=== PATIENT | male | born 1965 | race Caucasian/White ===

== ENCOUNTER 2016-08-18 14:07 | Day surgery (SDC) | payer OTHER ==
[~2016-08-18] VITALS: Ht 182.9 cm; Wt 95.9 kg
[2016-08-18] MEDS: Lactated Ringer's 1,000 ML IV SCH ×4 (05:00→20:33)
[~2016-08-18 14:07] MED LIST: CeFAZolin Inj 2 GM in IV Premix 1 EACH IV ONE; MULT-1018 PO; OMEP20TA86 PO
[2016-08-18] MEDS ORDERED: Ondansetron 2 mg/mL 2 mL Inj ONE ×2 (14:08)
[2016-08-18] MEDS ORDERED: MetoCLOpramide 5 mg/mL 2 mL Inj ONE (14:08)
[2016-08-18] MEDS ORDERED: Glucagon 1 mg/mL Inj ONE (14:08)
[2016-08-18] MEDS ORDERED: Rocuronium 10 mg/mL 5 mL Inj ONE ×2 (14:08)
[2016-08-18] MEDS ORDERED: Propofol 10,000 mCg/mL 20 mL Inj ONE ×2 (14:08)
[2016-08-18] MEDS ORDERED: Succinylcholine Chloride 20 mg/mL 5 mL Inj ONE (14:08)
[2016-08-18] MEDS ORDERED: EPHEDrine/NS 5 mg/mL 5 mL Syringe ONE (14:08)
[2016-08-18] MEDS ORDERED: fentaNYL-PF 50 mCg/mL 2 mL Inj ONE ×2 (14:08)
[2016-08-18] MEDS ORDERED: Dexamethasone 4 mg/mL Inj ONE ×2 (14:08)
[2016-08-18 16:02] VITALS: BP 118/70; PULSE 64; RESP 16; O2SAT 99
[2016-08-18] MEDS ORDERED: CeFAZolin Inj 2 gm / 50mL D5W IV ONE (16:21)
[2016-08-18] MEDS ORDERED: Bupivacaine-MPF 0.25%/EPI 30 mL Inj INJ ONE (17:18)
[2016-08-18] MEDS ORDERED: Iopamidol-300 50 mL Inj IV ONE (17:18)
[2016-08-18] MEDS ORDERED: Lactated Ringer's 1,000 ML IV SCH (17:52)
[2016-08-18] MEDS ORDERED: Lactated Ringer's 500 ML IV PRN (17:52)
--- NOTE | 2016-08-18 17:52 | PCM.HPANE ---
Patient Data Surgeon Admitting Provider: Attending Provider:Sanjeev Schwarz MD Primary Care Physician:Ailyn Other Provider:Russel Cook Anesthesia Reason for Visit Gallstones Ht/WT & BMI Height (Feet): 6 Height (Inches): 0 Weight (Kilograms): 36.5 Body Mass Index 10.00 Allergies Coded Allergies: No Known Allergies (Unverified , 08/17/16) Past Anesthesia History Anesthesia History: Denies:: Anesthesia Reactions, Malignant Hyperthermia Diabetes History Hx Diabetes?: No MRSA MRSA: No Medications Home Meds Incl Beta Felisha: No Reported Medications Omeprazole 20 Mg Tablet.dr20 Mg PO DAILY 08/17/16 Discontinued Reported Medications Multivitamin (Multi Vitamin Daily)1 Each Tablet1 Each PO DAILY 30 Days Ref 0 08/17/16 History History of ENT Problems?: No Hx of Heart Problems?: No Cardiovascular History: Denies:: Heart Murmur Hypertension Valvular Heart Disease Hx of Respiratory Problem?: No Respiratory History: Denies:: Use of C-PAP Machine Hx Neurologic Problems?: No Hx of GI Problems?: Yes Gastrointestinal History: Positive for:: Gall Bladder Disease (GALLSTONES= CURRENT PROBLEM) Denies:: Liver Disease (HX OF JAUNDICE W/ GALLBLADDER ATTACKS) Other GI Pertinent History: C/OF ABD (RUQ) PAIN S/P RT INGUINAL HERNIA RPR Hx of Problems?: No Male Hx: Positive for:: Testicular Surgery (S/P VASECTOMY) Denies:: Prostate Problems Scrotal Mass Skin History: Denies:: History Skin Disorders? Pressure Ulcers Hx Musculoskeletal Problems?: No Hx of Psycho/Social Problems?: Yes Psycho Social History: Positive for:: Anxiety Denies:: Hx Depression Hx Surgeries?: Yes (RT INGUINAL HERNIA RPR,VASECTOMY) Hx Any Other Health Problems?: Yes Other History: Denies:: Cancer Endocrine Disease Hospitalization Thyroid Disease Hx Diabetes: No Hx Alcohol Use: NoHave You Smoked inLast 12 mo: No Stop/Bang S-Snoring: Do You Snore Loudly: No T-Tired: feel tired, fatigued: No O-Obsered: Observed not breath: No P-Blood Pressure: treated: No B- Body Mass Index > 35 kg/m2: No A- Age over 50: Yes N- Neck Large Circumference: Yes G- Gender Male: Yes CANDIE Total Score: 3 Risk Assessment Category Category 1A: Patient has history of documented sleep apnea, and HAS NOT received any narcotic, sedative or anesthesia administration during this stay. Category 1B: Patient has history of documented sleep apnea, and HAS received any narcotic , sedative or anesthesia administration during this stay Category 2: Patient has SUSPECTED Obstructive Sleep Apnea, and HAS received any narcotic , sedative or anesthesia administration during this stay. Category 3: Patient has SUSPECTED Obstructive Sleep Apnea and HAS NOT received narcotic, sedative or anesthesia administration during this stay. Category 4: Outpatient in Procedural Areas with known sleep apnea or who screen positive for High Risk via the STOP/BANG questionnaire. Exam Exam Vital Signs Vital Signs Date Time Temp Pulse Resp B/P Pulse Ox O2 Delivery O2 Flow Rate FiO2 08/18/16 16:02 64 16 118/70 99 Room Air General Appearance: Alert, Oriented X3, Cooperative, No Acute Distress HEENT/AIRWAY: MP 2, Neck Movement (FROM), Mouth Opening (3 FBMO) Lungs: Clear to Auscultation, Normal Air Movement Heart: Exam Unremarkable, Regular Rate/Rhythm, No Murmurs/Rubs/Gallops Meds/Labs/Diagnostics Admission Meds Current Medications Lactated Ringer's (Lr) 1,000 ml @ 120 mls/hr Q8H20M IV Last administered on 16:03; Start 08/18/16 at 05:00; Stop 08/18/16 at 13:19; Status DC Acetaminophen (Tylenol) 650 mg PREOP ONCE PO Last administered on 08/18/16 16 :28; Start 08/18/16 at 06:00; Stop 08/18/16 at 06:01; Status DC Gabapentin (Neurontin) 600 mg STK-MED ONCE .ROUTE Last administered on 16:28; Start 08/18/16 at 16:20; Stop 08/18/16 at 16:21; Status DC Celecoxib (CeleBREX) 200 mg STK-MED ONCE .ROUTE Last administered on 08/18/16 16:28; Start 08/18/16 at 16:20; Stop 08/18/16 at 16:21; Status DC Scopolamine (Transderm-Scop Patch) 1.5 mg STK-MED ONCE TOPICAL Last administered on 08/18/16 16:28; Start 08/18/16 at 16:20; Stop 08/18/16 at 16:21 ; Status DC Plan Impression Patient chart reviewed, patient interviewed and anesthestic plan with risks, benefits, and alternatives discussed, and informed consent obtained. NPO Status: 1330 08/18/16 ASA Physical Status: ASA2 Mod Systemic Disease Anesthetic Plan: GA Bene/Risks/Altern/Consents: Yes HP Complete Prior to Induction: Yes Negrito Watters MD Aug 18, 2016 17:16
[2016-08-18] MEDS ORDERED: Phenylephrine 10,000 mCg/mL Inj IVPUSH PRN (17:55)
[2016-08-18] MEDS ORDERED: HYDROmorphone 1 mg/mL Inj IVPUSH PRN (17:55)
[2016-08-18] MEDS ORDERED: MetoCLOpramide 5 mg/mL 2 mL Inj IVPUSH PRN (17:55)
[2016-08-18] MEDS ORDERED: Labetalol 5 mg/mL 4 mL Inj IV PRN (17:55)
[2016-08-18] MEDS ORDERED: EPHEDrine Sulfate 50 mg/mL Inj IVPUSH PRN (17:55)
[2016-08-18] MEDS ORDERED: Atropine 0.4 mg/mL Inj IVPUSH PRN (17:55)
[2016-08-18] MEDS ORDERED: Ondansetron 2 mg/mL 2 mL Inj IVPUSH PRN (17:55)
[2016-08-18] MEDS ORDERED: HYDROmorphone 0.5 mg/0.5 mL iSecure Syringe IVPUSH PRN (19:45)
[2016-08-18] MEDS ORDERED: oxyCODONE-Acetamin 5-325 mg Tablet PO PRN (19:45)
[2016-08-18 19:54] VITALS: BP 142/86; PULSE 85; RESP 15; O2SAT 100
[2016-08-18 20:07] VITALS: BP 140/77; PULSE 96; RESP 18; O2SAT 98
[2016-08-18 20:28] VITALS: BP 131/76; PULSE 98; RESP 12; O2SAT 98
--- NOTE | 2016-08-18 20:48 | OP ---
[address] [address] OPERATIVE REPORT PATIENT: RAFFAELE DASILVA : 1965 MR#: [id number] ADMIT: 08/18/2016 JOB ID: [id number] DATE OF SURGERY: 08/18/2016 ANESTHESIA: General. PREOPERATIVE DIAGNOSIS(ES): Biliary colic with choledocholithiasis. POSTOPERATIVE DIAGNOSIS(ES): Chronic cholecystitis with choledocholithiasis with retained common bile duct stone. OPERATION: Laparoscopic cholecystectomy with failed attempt at laparoscopic duct exploration. SURGEON: Dr. Sanjeev Schwarz. PERSONNEL RECRUITER: LAKESHIA Valadez (The certified medical technician assistant was required for safe and timely completion of the case). COMPLICATIONS: None. ESTIMATED BLOOD LOSS: Minimal. CONDITION: Satisfactory. FINDINGS: There was thickening of the gallbladder suggestive of chronic inflammation. Cholangiogram demonstrated a distal common bile duct stone. A transcystic common bile duct exploration was attempted. About an hour was spent trying to extract the stone but, ultimately, proved unsuccessful and was therefore abandoned. INDICATIONS/SIGNIFICANT HISTORY: The patient is a 50-year-old man who was referred to me by an outside application assistant for symptomatic cholelithiasis. Over the past month or two, he had been having episodic postprandial right upper quadrant abdominal pain. 2-1/2 weeks ago he had an episode that lasted for three or four days and also developed jaundice at that time. He sought medical attention and an ultrasound demonstrated cholelithiasis. He was referred to me as an outpatient and saw me two days ago. By that time he was pain free and no longer jaundiced; I therefore scheduled him for a semi-elective cholecystectomy with cholangiogram. OPERATIVE TECHNIQUE: The patient was taken into the operating room and placed in supine position. General anesthesia was administered and perioperative antibiotics were given. The abdomen was prepped and draped in standard surgical fashion and a procedural pause performed. Entry was gained into the abdomen through a supraumbilical incision using a 10 mm Optiview trocar. Local anesthetic was injected, followed by insertion of 5 mm ports in the subxiphoid as well as two in the right upper quadrant. Dissection was begun to identify the cystic duct and cystic artery. Gallbladder was quite elongated and the surrounding tissue was quite thick regarding a prolonged dissection. A critical view of safety was achieved. The cystic artery was taken with electrocautery. A clip was placed on the cystic duct/gallbladder junction and ductotomy made. Cholangiocatheter was inserted and cholangiogram obtained with normal biliary anatomy identified. There was flow into the duodenum, but with a filling defect suggestive of a stone in the distal common bile duct. Lidocaine was injected into the duct and glucagon given IV. Repeat cholangiogram was obtained showing a stone did not pass. Therefore, a wire basket was inserted through the cystic duct. I had difficulty transiting from the cystic to the common bile duct. At one point the wire advanced, but took an unusual course. By this time, the contrast had washed out and the stone and duct could not be visualized. Therefore, another cholangiogram was obtained confirming that the wire was not in the duct. I was initially concerned about the possibility that the wire had perforated the CBD, but there was no extravasation of contrast to suggest this. Presumably the wire was not in the duct at all or had passed through the posterior cystic duct high up. At this point I elected to abort any further attempt at duct exploration. Approximately one hour had been spent on this. Two clips were then placed on the cystic duct and the transection completed. The remainder of the dissection of the gallbladder off the cystic duct was then completed and the gallbladder placed in an EndoCatch bag and removed through the umbilical port site. The surgical bed was inspected and found to be hemostatic and free of bile. It was irrigated. The umbilical fascia was then closed using 2-0 PDS. The lateral ports were removed under direct visualization followed by release of pneumoperitoneum and removal of the remaining port. Skin was closed using 4-0 Monocryl. The patient will be admitted to the hospital with plans for ERCP to be performed tomorrow discrete. LUSI
[2016-08-18] MEDS: fentaNYL-PF 50 mCg/mL 2 mL Inj IVPUSH PRN ×2 (20:57→21:01)
[2016-08-18 21:04] VITALS: BP 127/75; PULSE 88; RESP 12; O2SAT 98
[2016-08-18 21:15] VITALS: BP 129/75; PULSE 92; RESP 16; O2SAT 94
--- NOTE | 2016-08-18 22:27 | PCM.ANEP1 ---
Post Anesthesia Phase 1 PACU Phase 1 Assessment Vital Signs Vital Signs Date Time Temp Pulse Resp B/P Pulse Ox O2 Delivery O2 Flow Rate FiO2 08/18/16 21:04 37.2 88 12 127/75 98 Room Air 08/18/16 20:28 98 12 131/76 98 Room Air 08/18/16 20:07 96 18 140/77 98 Room Air 08/18/16 19:54 37.2 85 15 142/86 100 Simple Mask 9 08/18/16 16:02 64 16 118/70 99 Room Air Anesthetic Administered: GA Level of Alertness: Awake, talking CONTRERAS's with Equal Strength: Yes Pain: Yes Nausea or Vomiting: No Oxygen Delivery: Simple Mask Lungs: Clear to Auscultation, Normal Air Movement Dermatome Level: Full Sensation Negrito Watters MD Aug 18, 2016 22:27
--- NOTE | 2016-08-18 22:28 | PCM.ANEP2 ---
Post Anesthesia Evaluation ASA/CMS Post Anesthesia VS in Patient's Normal Range?: Yes Resp Stable; Airway Patent?: Yes CV Function & Hydration Stable: Yes Mental Status Recovered?: Yes Pain control Satisfactory?: Yes N/V Control Satisfactory?: Yes Negrito Watters MD Aug 18, 2016 22:27
[2016-08-18] MEDS: Piperacillin-Tazo 3.375 Gm Inj 3.375 GM in Dextrose 5% Minibag Plus 50 ML IV SCH (23:04)
[2016-08-18] MEDS: Dextrose 5% Lactated Ringer's 1,000 ML IV SCH (23:05)
--- NOTE | 2016-08-18 23:33 | NUR ---
Post-op Althea Alert, denies pain or nausea, VSS. IV fluids and Zosyn started. Taking sips of clears then NPO at midnight for ERCP 08/19.
[2016-08-19] VITALS (12 sets, daily range): BP systolic 106–128; BP diastolic 65–77; PULSE 52–99; RESP 11–18; O2SAT 68–100
[2016-08-19 05:53] LABS: BASOPHILS % (AUTO) 0 % (0-3); EOSINOPHILS % (AUTO) 0 % (0-5); Mean Corpuscular Hemoglobin 29.4 pg (27.0-35.0); Mean Corpuscular Volume 87.4 fL (81-100); NEUTROPHILS % (AUTO) 90.1 % (40-74); Platelet Count 269 bil/L (150-400)
[2016-08-19] MEDS: Dextrose 5% Lactated Ringer's 1,000 ML IV SCH (08:15)
--- NOTE | 2016-08-19 08:23 | PROG NOTE ---
[address] [address] PROGRESS NOTE PATIENT: RAFFAELE DASILVA : 1965 MR#: [id number] ADMIT: 08/18/2016 JOB ID: [id number] DATE: 08/19/2016 SUBJECTIVE: The patient is seen postoperative day one from laparoscopic cholecystectomy with retained common bile duct stone. Yesterday the patient underwent a laparoscopic cholecystectomy for a history of biliary colic and a remote history of jaundice. Cholangiogram demonstrated a common bile duct stone. An attempt was made at transcystic duct exploration but ultimately failed. This morning the patient tells me he is feeling pretty good with minimal pain. OBJECTIVE: He has remained afebrile and hemodynamically normal. This morning, he is alert, oriented and comfortable. His abdomen is soft, nontender, nondistended. His dressings are clean, dry and intact. His white blood cell count this morning was 8.5. His hematocrit is 39.6. Platelet count is 269. Creatinine is 1.07. His bilirubin is 1.5. AST and ALT are mildly elevated. ASSESSMENT AND PLAN: This is a 50-year-old man postop day one from laparoscopic cholecystectomy with cholangiogram demonstrating retained common bile duct stone. I discussed the case with Dr. Bae of Gastroenterology yesterday evening. He has currently agreed to see the patient and plan for an ERCP today. I will leave the patient on broad-spectrum antibiotics given that his doctor was instrumented yesterday, this can be stopped after the stone has been removed. The patient is currently n.p.o. in anticipation of hopefully undergoing ERCP today.
--- NOTE | 2016-08-19 09:57 | DRSVH ---
PROCEDURE: X-RAY OPERATIVE CHOLANGIOGRAM ([id number]) INDICATIONS: GALLSTONES COMPARISON: None. FINDINGS: Biliary ducts: The surgeon injected contrast into the biliary ducts after cannulation of the cystic duct stump. Visualized intra- and extrahepatic bile ducts are normal in caliber, without strictures. 1.5 cm rounded filling defect involves the distal common bile duct. No evidence for iatrogenic troy vickey injury. Duodenum: Contrast flows promptly through the sphincter of Oddi into the duodenum, which appears nor mal in caliber. IMPRESSION: Probable retained stone. Correlate with real-time exam. Dictated by: Lalo Victor [facility] Interpreted: Zaina Haddad MD on 08/19/2016 at 9:57 Transcribed by: MARBIN on 08/19/2016 at 9:57 Approved by: Zaina Haddad MD, PhD on 08/19/2016 at 16:30
[2016-08-19] MEDS: Piperacillin-Tazo 3.375 Gm Inj 3.375 GM in Dextrose 5% Minibag Plus 50 ML IV SCH ×2 (10:22→21:12)
[2016-08-19] MEDS ORDERED: 0.9% Sodium Chloride 100 ML ONE (10:23)
--- NOTE | 2016-08-19 11:10 | PCM.HPANE ---
Patient Data Surgeon Admitting Provider: Attending Provider:Sanjeev Schwarz MD Primary Care Physician:Ailyn Other Provider:Russel Cook Anesthesia Reason for Visit Gallstones Ht/WT & BMI Height (Feet): 6 Height (Inches): 0.00 Weight (Kilograms): 95.900 Body Mass Index 28.64 Allergies Coded Allergies: No Known Allergies (Unverified , 08/17/16) Past Anesthesia History Anesthesia History: Denies:: Anesthesia Reactions, Malignant Hyperthermia Diabetes History Hx Diabetes?: No MRSA MRSA: No Medications Home Meds Incl Beta Felisha: No Reported Medications Omeprazole 20 Mg Tablet.dr20 Mg PO DAILY 08/17/16 Discontinued Reported Medications Multivitamin (Multi Vitamin Daily)1 Each Tablet1 Each PO DAILY 30 Days Ref 0 08/17/16 History History of ENT Problems?: No Hx of Heart Problems?: No Cardiovascular History: Denies:: Heart Murmur Hypertension Valvular Heart Disease Hx of Respiratory Problem?: No Respiratory History: Denies:: Use of C-PAP Machine Hx Neurologic Problems?: No Hx of GI Problems?: Yes Gastrointestinal History: Positive for:: Gall Bladder Disease (GALLSTONES= CURRENT PROBLEM) Denies:: Liver Disease (HX OF JAUNDICE W/ GALLBLADDER ATTACKS) Other GI Pertinent History: C/OF ABD (RUQ) PAIN S/P RT INGUINAL HERNIA RPR Hx of Problems?: No Other Pertinent History: S/P rosa 08/18/16 Male Hx: Positive for:: Testicular Surgery (S/P VASECTOMY) Denies:: Prostate Problems Scrotal Mass Skin History: Denies:: History Skin Disorders? Pressure Ulcers Hx Musculoskeletal Problems?: No Hx of Psycho/Social Problems?: Yes Psycho Social History: Positive for:: Anxiety Denies:: Hx Depression Hx Surgeries?: Yes (RT INGUINAL HERNIA RPR,VASECTOMY) Hx Any Other Health Problems?: Yes Other History: Denies:: Cancer Endocrine Disease Hospitalization Thyroid Disease History Blood Transfusions: Positive for:: Accept Blood Products? Blood Transfuse Reaction Denies:: Blood Transfusions Hx Diabetes: No Hx Alcohol Use: No Smoking Status: Never Smoker Have You Smoked inLast 12 mo: No Stop/Bang Treated for Sleep Apnea?: No S-Snoring: Do You Snore Loudly: Yes T-Tired: feel tired, fatigued: No O-Obsered: Observed not breath: No P-Blood Pressure: treated: No B- Body Mass Index > 35 kg/m2: No A- Age over 50: Yes N- Neck Large Circumference: No G- Gender Male: Yes CANDIE Total Score: 2 CANDIE Risk Assessment: Low Risk, <3 Yes Risk Assessment Category Category 1A: Patient has history of documented sleep apnea, and HAS NOT received any narcotic, sedative or anesthesia administration during this stay. Category 1B: Patient has history of documented sleep apnea, and HAS received any narcotic , sedative or anesthesia administration during this stay Category 2: Patient has SUSPECTED Obstructive Sleep Apnea, and HAS received any narcotic , sedative or anesthesia administration during this stay. Category 3: Patient has SUSPECTED Obstructive Sleep Apnea and HAS NOT received narcotic, sedative or anesthesia administration during this stay. Category 4: Outpatient in Procedural Areas with known sleep apnea or who screen positive for High Risk via the STOP/BANG questionnaire. Exam Exam Vital Signs Vital Signs Date Time Temp Pulse Resp B/P Pulse Ox O2 Delivery O2 Flow Rate FiO2 08/19/16 04:34 36.5 85 16 106/67 94 Room Air General Appearance: Alert, Oriented X3, Cooperative, No Acute Distress HEENT/AIRWAY: MP 1 Lungs: Normal Air Movement Heart: Exam Unremarkable Meds/Labs/Diagnostics Admission Meds Current Medications Gabapentin (Neurontin) 600 mg STK-MED ONCE .ROUTE Last administered on 16:28; Start 08/18/16 at 16:20; Stop 08/18/16 at 16:21; Status DC Celecoxib (CeleBREX) 200 mg STK-MED ONCE .ROUTE Last administered on 08/18/16 16:28; Start 08/18/16 at 16:20; Stop 08/18/16 at 16:21; Status DC Scopolamine (Transderm-Scop Patch) 1.5 mg STK-MED ONCE TOPICAL Last administered on 08/18/16 16:28; Start 08/18/16 at 16:20; Stop 08/18/16 at 16:21 ; Status DC Bupivacaine HCl/ Epinephrine Bitart (Sensorcaine-MPF 0.25%/EPI Inj) 30 ml STK- MED ONCE INJ Last administered on 08/18/16 17:18; Start 08/18/16 at 17:18; Stop 08/18/16 at 17:46; Status DC Iopamidol (Isovue-300 Inj) 50 ml STK-MED ONCE IV Last administered on 17:18; Start 08/18/16 at 17:18; Stop 08/18/16 at 17:59; Status DC Lidocaine HCl 20 ml 20 ml STK-MED ONCE INJ Last administered on 08/18/16 18:40 ; Start 08/18/16 at 18:40; Stop 08/18/16 at 18:43; Status DC Dextrose/Lactated Ringer's 1,000 ml @ 80 mls/hr [id number] IV Last administered on 08/18/16 23:05; Start 08/18/16 at 19:45 Piperacillin Sod/ Tazobactam Sod 3.375 gm/Dextrose/ Water 50 ml @ 12.5 mls/hr Q12 IV Last administered on 08/19/16 10:22; Start 08/18/16 at 21:30 Sodium Chloride (Normal Saline) 100 ml @ ud STK-MED ONCE .ROUTE Last administered on 08/19/16 10:26; Start 08/19/16 at 10:23; Stop 08/19/16 at 10:24 ; Status DC Labs Test 08/19/16 05:32 White Blood Count 8.5th/mm3 (3.8-10.1) Red Blood Count 4.53mil/mm3 (4.40-5.80) Hemoglobin 13.3g/dL (13.8-17.2) Hematocrit 39.6% (41.0-50.0) Mean Corpuscular Volume 87.4fL (81-100) Mean Corpuscular Hemoglobin 29.4pg (27.0-35.0) Mean Corpuscular Hemoglobin Concent 33.6% (32.0-37.0) Red Cell Distribution Width 13.4% (12.3-15.4) Platelet Count 269bil/L (150-400) Neutrophils (%) (Auto) 90.1% (40-74) Lymphocytes (%) (Auto) 5.8% (14-46) Monocytes (%) (Auto) 4.0% (4-12) Eosinophils (%) (Auto) 0% (0-5) Basophils (%) (Auto) 0% (0-3) Sodium Level 137mEq/L (134-144) Potassium Level 4.8mEq/L (3.5-5.2) Chloride Level 100mEq/L (97-108) Carbon Dioxide Level 23mmol/L (18-29) Blood Urea Nitrogen 13mg/dL (6-24) Creatinine 1.07mg/dL (0.76-1.27) Estimat Glomerular Filtration Rate 77mL/min (>59) Glucose Level 173mg/dL (60-99) Calcium Level 9.1mg/dL (8.5-10.1) Total Bilirubin 1.5mg/dL (0.0-1.2) Aspartate Amino Transf (AST/SGOT) 102U/L (0-50) Alanine Aminotransferase (ALT/SGPT) 324U/L (0-44) Alkaline Phosphatase 131U/L (25-150) Total Protein 6.5g/dL (6.4-8.4) Albumin 3.8g/dL (3.4-5.0) Lipase 20U/L (13-60) Plan Impression Patient chart reviewed, patient interviewed and anesthestic plan with risks, benefits, and alternatives discussed, and informed consent obtained. NPO Status: 1330 08/18/16 ASA Physical Status: ASA2 Mod Systemic Disease Anesthetic Plan: GA Bene/Risks/Altern/Consents: Yes HP Complete Prior to Induction: Yes Zeus Padron MD Aug 19, 2016 11:10
[2016-08-19] MEDS ORDERED: Lactated Ringer's 1,000 ML IV ONE ×2 (11:26)
--- NOTE | 2016-08-19 11:58 | PCM.CHPMED ---
Subjective Date of Service: Aug 19, 2016 Provider requesting consult: Sanjeev Schwarz MD Primary Physician: Admitting Physician: Primary Care Physician: Aimecp Attending Physician: Sanjeev Schwarz MD Chief Complaint: Chief Complaint: REASON FOR GI CONSULT: Biliary colic and jaundice in patient POD 1 s/p lap rosa with cholangiogram that revealed probable retained stone within CBD History of Present Illness: GASTROENTEROLOGY CONSULTATION NOTE Mr. Ward is a pleasant 50 year old gentleman with history of biliary colic and jaundice POD 1 laparoscopic cholecystectomy with retained stone within CBD. GI was asked to consult to perform ERCP in attempt to relieve the obstruction. Mr. Ward states that he currently feels well: denies nausea, vomiting, fever , chills, diarrhea; does admit to mild ongoing bloating secondary to the procedure and mild abdominal pain that is well controlled. Denies any history of GI issues other than his biliary colic. He notes that he was taking Prevacid , but not on a daily basis. Denies history of chronic NSAID/ASA use. Denies any history of chronic/daily EtOH intake, no tobacco use. Denies any other health conditions. Denies any other surgical procedures. Labs and vitals have remained stable post-operatively. Chart review reveals that patient was scheduled to have semi- elective/ outpatient lap rosa due to ongoing intermittent biliary colic, and symptomatic cholelithiasis. Lap rosa was performed by Dr. Schwarz 08/18, critical view was obtained, and no complications were noted, other than evidence of the retained stone within the CBD visualized by intra-op cholangiogram. Review of Systems: Complete ROS obtained; pertinent positives and negatives as noted in HPI PMH Past Medical History Cholelithiasis s/p lap rosa Surgical History Laparoscopic cholecystectomy Home Medications Reports: Prevacid prn, estimated at 6 pills per month; not a daily medication; multivitamin Allergies: Coded Allergies: No Known Allergies (Unverified , 08/17/16) Family History Family History Denies any known history of GI disorders; denies h/o celiac, crohn's, ulc colitis, cancer Social History Hx Alcohol Use: NoHx Substance Use: NoHx Tobacco Use: No Smoking Status: Never Smoker Exam Vital Signs Vital Sign - Last Date Time Temp Pulse Resp B/P Pulse Ox O2 Delivery O2 Flow Rate FiO2 08/19/16 11:15 55 16 116/67 100 Room Air 08/19/16 04:34 36.5 08/18/16 19:54 9 Intake and Output 08/18/16 08/18/16 08/19/16 Cumulative From/Thru 14:59 22:59 06:59 08/17/16 09:30 - 08/19/16 06:31 Intake Total 250 ml 1295 ml 1545 ml Output Total 350 ml 350 ml Balance 250 ml 945 ml 1195 ml Intake Oral 820 ml 820 ml IV Total 250 ml 475 ml 725 ml Output Urine Total 350 ml 350 ml General: Alert, Oriented X3, Cooperative, No Acute Distress Head: Facial Expression & Appearance (appropriate and symmetric) Eyes: Scleral Anicteric Nose: Mucous Membr Moist/[place] Mouth: Mucous Membr Moist/[place] Chest & Lungs: Auscultation (clear bilaterally), No adventitious breath sounds Cardiovascular: Regular Rate/Rhythm, No Murmurs/Rubs/Gallops Pulses: Radial (equal and bilateral) Abdomen: Non-tender, Non-distended, Normoactive bowel tones, Soft, Other (port sites bandaged, borders free of erythema and tenderness) Extremities: No cyanosis/clubbing/edma bilat, Warm Neurological: Cranial Nerves 2-12 Intact, Normal Speech (without slur) Lab and Diagnostics Result Diagram: 08/19/16 0532 08/19/16 0532 Assessment & Plan Assessment GASTROENTEROLOGY CONSULTATION NOTE Mr. Ward is a pleasant 50 year old gentleman with history of biliary colic and jaundice POD 1 laparoscopic cholecystectomy with retained stone within CBD. GI was asked to consult to perform ERCP in attempt to relieve the obstruction. Assessments - Choledocholithiasis - History of symptomatic cholelithiasis, POD 1 laparoscopic cholecystectomy Plan - ERCP 08/19 to retrieve retained stone Thank you for this consult, we will follow along at this time, and will reports findings of ERCP. Total time: 60 minutes Problems: VTE Mechanical Devices: Intermittant Pneumatic CD Attending Statement Patient seen and examined. Agree with assessment and plan as described by Dr Lara. ERCP procedure along with potential complications discussed in detail. Patient wished to proceed. Carito Lara DO Aug 19, 2016 11:58 Mikel Bae MD Aug 19, 2016 22:14
[2016-08-19] MEDS ORDERED: Lactated Ringer's 1,000 ML IV SCH (12:06)
[2016-08-19] MEDS ORDERED: Lactated Ringer's 500 ML IV PRN (12:06)
[2016-08-19] MEDS ORDERED: MetoCLOpramide 5 mg/mL 2 mL Inj IVPUSH PRN (12:10)
[2016-08-19] MEDS ORDERED: Dexamethasone 4 mg/mL Inj IVPUSH PRN (12:10)
[2016-08-19] MEDS ORDERED: Phenylephrine 10,000 mCg/mL Inj IVPUSH PRN (12:10)
[2016-08-19] MEDS ORDERED: Ondansetron 2 mg/mL 2 mL Inj IVPUSH PRN (12:10)
[2016-08-19] MEDS ORDERED: HYDROmorphone 1 mg/mL Inj IVPUSH PRN (12:10)
[2016-08-19] MEDS ORDERED: EPHEDrine Sulfate 50 mg/mL Inj IVPUSH PRN (12:10)
[2016-08-19] MEDS ORDERED: fentaNYL-PF 50 mCg/mL 2 mL Inj IVPUSH PRN (12:10)
--- NOTE | 2016-08-19 12:28 | NUR ---
Off unit Pt off unit to Endo at 1120 in w/c for ERCP. Report given to RN. Pt A&O x 3, CONTRERAS, pain well controlled 07/02, VSS.
--- NOTE | 2016-08-19 13:39 | PCM.ANEP1 ---
Post Anesthesia Phase 1 PACU Phase 1 Assessment Date of Service: Aug 19, 2016 Vital Signs Vital Signs Date Time Temp Pulse Resp B/P Pulse Ox O2 Delivery O2 Flow Rate FiO2 08/19/16 13:20 36.6 67 13 118/75 98 Room Air 08/19/16 13:15 68 12 121/71 100 Room Air 08/19/16 13:10 67 12 118/72 100 Simple Mask 8 08/19/16 13:05 68 12 119/71 68 Simple Mask 8 08/19/16 12:59 36.1 69 11 115/77 100 Simple Mask 8 08/19/16 11:15 55 16 116/67 100 Room Air Anesthetic Administered: GA Level of Alertness: Awake, talking CONTRERAS's with Equal Strength: Yes Pain: No Nausea or Vomiting: No Oxygen Delivery: Simple Mask Lungs: Normal Air Movement Dermatome Level: Full Sensation Zeus Padron MD Aug 19, 2016 13:39
--- NOTE | 2016-08-19 13:40 | PCM.ANEP2 ---
Post Anesthesia Evaluation ASA/CMS Post Anesthesia VS in Patient's Normal Range?: Yes Resp Stable; Airway Patent?: Yes CV Function & Hydration Stable: Yes Mental Status Recovered?: Yes Pain control Satisfactory?: Yes N/V Control Satisfactory?: Yes Zeus Padron MD Aug 19, 2016 13:40
--- NOTE | 2016-08-19 14:36 | ENDO ---
[address] [address] ENDOSCOPY PROCEDURE PATIENT: RAFFAELE DASILVA : 1965 MR#: [id number] ADMIT: 08/18/2016 JOB ID: [id number] DATE: 08/19/2016 PROCEDURE: Endoscopic retrograde cholangiopancreatography with biliary sphincterotomy and ductal clearance. EQUIPMENT: Standard duodenoscope. SEDATION: General anesthesia with endotracheal intubation as provided by Dr. Zeus Padron. At the completion of the procedure, 100 mg of indomethacin suppository was placed to prophylax against post ERCP pancreatitis. The patient was already on antibiotics prior to the procedure. COMPLICATIONS: None identified. INDICATIONS: Positive intraoperative cholangiogram and mildly abnormal LFTs consistent with choledocholithiasis. PROCEDURAL INFORMATION: After the risks and benefits were explained, written and verbal informed consent was obtained. The patient was brought into the endoscopy suite and placed into the prone position following anesthesia and intubation. The scope was introduced into the mouth through the bite block, and advanced under indirect visualization to stomach. From there, the scope was guided under direct visualization into the second portion of the duodenum. The major papilla was identified and appeared to demonstrate some mild inflammatory elements with suggestion that something had perhaps passed through the duct. That said, after the initial evidence of some bile demonstrated right at the apex of the major papilla. Biliary cannulation was a little challenging because of the inflamed anatomy. The wire tended to deflect into pancreatic duct. We did not inject any contrast into the PD. Eventually we found the biliary tree and then easily advanced the wire deep up into the intrahepatics. Initial cholangiograms demonstrated no proximal filling defects. The distal duct did not seen to fill all that well. I had reviewed the cholangiogram prior to the procedure from his surgery yesterday and indeed the distal biliary tree appeared to harbor what appeared to be a stone. We, therefore, elected to proceed with biliary sphincterotomy. This was accomplished and felt to be quite adequate. We then used an 8.5 mm Olympus stone extraction catheter with a contrast port below the balloon. Multiple sweeps of the duct with the 8.5 mm setting did not yield any significant stone debris. My structural engineering technician watching the endoscopy screen while I was watching fluoro stated that a small fragment of stone was seen ejected during our sweeps. With the balloon at the level of the hilum, we injected contrast but did not get a great occlusion cholangiogram and swapped this balloon out for an above balloon contrast injection port. With occlusion cholangiography, the intrahepatics were mildly dilated but did not seem to harbor any retained stones. I then swept the duct again from high up in the CHD. We did not see any evidence of a leak. The remnant of the cystic duct filled in the region of the clips from cholecystectomy. Sweeping down through the distal duct again no stones were engaged. The only finding at the bottom of the biliary tree was a little residual sphincter mechanism which the balloon easily overcame and passed through without ejecting any stones or further debris. We felt that we had excellent drainage of dark soliz bile and contrast and elected to terminate the procedure at this time. The catheter was removed. The scope was then withdrawn back into the stomach. Excess air and fluid was removed. The scope was then withdrawn from the patient who tolerated the procedure well. Suppository was placed. The patient was then extubated and transferred to the PACU in stable condition. FINDINGS: Biliary access was ultimately accomplished with an Olympus 20 mm short nosed sphincterotome. The biliary tree was mildly dilated at around the 8 mm gayle. No obvious filling defects were seen. The duct was swept multiple times following adequate sphincterotomy. One small fragment was seen removed. No large stones. Excellent drainage at the completion of our cholangiograms. ENDOSCOPIC DIAGNOSIS: 1. Biliary sphincterotomy with biliary tree clearance. 2. Very small remnant of stone debris removed (choledocholithiasis)-my suspicion is that the larger stone burden had probably already spontaneously passed. RECOMMENDATIONS: 1. The patient should be n.p.o. for another approximately 5 hours. 2. At that point he can be started on clear liquids. 3. He can have his diet advanced as desired and tolerated tomorrow morning. 4. From a GI standpoint, the patient should be allowed discharge home at the discretion of his primary service.
--- NOTE | 2016-08-19 14:52 | DRSVH ---
PROCEDURE: X-RAY E.R.C. BILIARY DUCTS ([id number]) INDICATIONS: CBD STONE TECHNIQUE: Fluoroscopic spot films were acquired by the gastroenterology service during ERCP procedu re. COMPARISON: [facility], , XR CHOLANGIOGRAM OPERATIVE, 08/18/2016, 17:26. FINDINGS: Sweeping balloon catheter is present in the bile duct is normal in size. No definite intra luminal filling defects. No extravasation. IMPRESSION: Normal appearance of the bile ducts and no definite intraluminal filling defects are seen . Dictated by: Lalo Victor RR Interpreted: Zaina Haddad MD on 08/19/2016 at 14:51 Transcribed by: MARBIN on 08/19/2016 at 14:52 Approved by: Zaina Haddad MD, PhD on 08/19/2016 at 16:34
--- NOTE | 2016-08-19 19:14 | NUR ---
Back on unit Pt back from ERCP at 1335. Able to transfer self to bed, c/o pain 06/01, VSS, CONTRERAS, A&O x 3. NPO for 5 hours until 1800 when he can have clears.
--- NOTE | 2016-08-19 21:00 | NUR ---
Activity Patient able to ambulate around the unit using a steady gait with spouse at side. Lap sites with bandages intact. No drainage or bleeding noted. Pain rates pain 2/10 which is he states is tolerable. CONTRERAS. Denies tingling and numbness. care ongoing.
[2016-08-20 00:18] VITALS: BP 101/64; PULSE 69; RESP 16; O2SAT 98
[2016-08-20] MEDS: Dextrose 5% Lactated Ringer's 1,000 ML IV SCH (00:54)
[2016-08-20 04:29] VITALS: BP 108/63; PULSE 54; RESP 16; O2SAT 98
--- NOTE | 2016-08-20 04:38 | NUR ---
Pain Patient requested Tylenol for 4/10 pain. Offered Dilaudid and Percocet and patient refused. "I don't want to take that stuff." Offered to contact MD for Tylenol order and patent states "It's not that bad, I'll have you call the doctor when it becomes an 8." Care ongoing.
--- NOTE | 2016-08-20 07:53 | PCM.DISURG ---
Surgical Discharge Instruction Date of Service Aug 20, 2016 Dates of Hospitalization Date of Hospital Admission Providers Admitting Physician: Primary Care Physician: Ailyn Attending Physician: Sanjeev Schwarz MD Discharge Diagnosis Discharge Diagnosis Biliary colic, cholodocholithiasis Diet Discharge Diet: No restrictions Activity Discharge Activity-General: Be up and about, No driving while taking narcotic Dressing and Incisional Care Dressing Care: Allow Steri Stripes to fall off Hygiene: May shower, NO bathtub, hot tub or whirlpool Follow Up Plan Follow Up Plan follow up with surgical PA in 2-4 weeks Call your provider for: Fever, Chills, Increasing abdominal pain, Nausea, Vomiting Sanjeev Schwarz MD Aug 20, 2016 07:53
[2016-08-20 08:34] LABS: Mean Corpuscular Hemoglobin 29.1 pg (27.0-35.0); Mean Corpuscular Volume 88.3 fL (81-100)
--- NOTE | 2016-08-20 10:22 | PROG NOTE ---
[address] [address] PROGRESS NOTE PATIENT: RAFFAELE DASILVA : 1965 MR#: [id number] ADMIT: 08/18/2016 JOB ID: [id number] DATE: 08/20/2016 SUBJECTIVE: The patient is seen postoperative day two from laparoscopic cholecystectomy and postoperative day one from the ERCP for retained common bile duct stone. The patient tells me he is doing fine this morning. He is having no pain. He is requiring no pain medications. He is tolerating a regular diet. He is eager to go home. He has remained afebrile and hemodynamically normal. This morning, he is alert, oriented and comfortable. His abdomen is soft, nontender, nondistended. His incisions look fine. His white blood cell count remains normal at 7.1. His hematocrit is stable at 39.4. His bilirubin has normalized to 1.2. ASSESSMENT AND PLAN: This is a 50-year-old man two days out from laparoscopic cholecystectomy for biliary colic and history of jaundice followed by ERCP yesterday for extraction of a retained common duct stone. The patient is doing well. He is tolerating a regular diet. His bilirubin has normalized. He will discharge today. He can followup with surgical PA in 2-4 weeks.
--- NOTE | 2016-08-20 12:24 | NUR ---
DISCHARGE Pt discharged to home - walked off unit to sit in lobby and wait for his ride. [employer] MEMBER walked pt off unit. A&Ox3, CONTRERAS, IV dcd intact, VSS, Pain tolerable, 4x lap sites CDI, No scripts given. CareNotes printed off by bolt maker for ERCP and Lap Althea discharge instructions. Discharge instructions provided on dc dx and s/sx to seek medical attention for. Pt requested copy of his lab work - provided. All personal beloningings in hand at dc. No other questions/concerns at dc.
--- NOTE | 2016-08-20 15:25 | PATH ---
SURGICAL PATHOLOGY Attending Physician:Sanjeev Schwarz MD CASE STATUS: Signed Out PATIENT NAME: RAFFAELE DASILVA PID: [id number] : 1965 DATE COLLECTED:08/18/2016 00:00 SPECIMEN: Gallbladder CLINICAL HISTORY: GALLSTONES 1). GALLBLADDER FINAL DIAGNOSIS: Gallbladder, Cholecystectomy: Chronic cholecystitis with cholelithiasis. No evidence of dysplasia or malignancy. ICD10 K80.60 GROSS DESCRIPTION: The specimen is received in one formalin filled container labeled with the patient's name, sublabeled "gallbladder" and consists of a 10.5 x 3.0 x 3.0 CM gallbladder. The serosa is smooth. The wall is 0.2-0.5 CM in thickness. The mucosa is a pink-caputo to yellow-caputo in color. The lumen contains a yellow-green mucoid material and 2 rough dark caputo to green caputo calculi which range in size from 1.4-2.2 CM. 5 players club representative sections are submitted in one cassette. 08/19/2016 [facility] ICD-9 CODES: CPT CODES: 1: 73753 Electronically Signed Out Gisselle Matias MD [facility] Pathology [facility] [address], [place] [address] Technical component performed at [facility], [facility] [address], [place], [address]
--- NOTE | 2016-08-23 11:13 | PCM.DC.SUR ---
Discharge Summary Date of Service: Date of Hospital Admission: 08/18/2016 Date of Operation(s): 08/18/2016 08/19/2016 Date of Discharge: Aug 20, 2016 at 12:15 Diagnosis at Time of Discharge 1.Chronic cholecystitis with choledocholithiasis with retained common bile duct stone. 2. Choledochocholelithiasis Problems: Operation 1.Laparoscopic cholecystectomy with failed attempt at laparoscopic duct exploration. 2.Endoscopic retrograde cholangiopancreatography with biliary sphincterotomy and ductal clearance. Brief History and Physical: Mr Ward is a 50-year-old man referred in consultation by Dr. Moore for symptomatic cholelithiasis. The patient describes that over the past few years he has been experiencing episodic right upper quadrant abdominal pain. The pain will occur every 4-6 weeks, was precipitated by fatty food and typically lasting 3-5 hours. About 2-1/2 weeks ago he had another episode, but this time he had recurrent pain over 3-4 days. His also noted that he turned yellow. He sought medical attention for this. An ultrasound demonstrated cholelithiasis. CT scan showed gallstones but no other abnormalities. On August 01 his bilirubin was 4.4, his white blood cell count was 5, his lipase was 35. His bilirubin trended down and then, about 4 days ago was up to 3. Abdominal pain had resolved at the time of admission. Consultants: GI Hospital Course: The patient was admitted and underwent the first above-mentioned operation without complication. The following day the second above operation was successfully performed by Dr. Bae. He was stable for discharge on the second postsurgical day. At the time of discharge she was pain-free, tolerating a diet, tolerating pain on oral analgesic, and his wounds appeared to be healing. Pathology: FINAL DIAGNOSIS: Gallbladder, Cholecystectomy: Chronic cholecystitis with cholelithiasis. No evidence of dysplasia or malignancy. Disposition: The patient was discharged home on his second postsurgical day. Follow-up Plan: He will follow-up in the office with a surgical PA in 2 weeks. Omeprazole (Omeprazole) 20 Mg Tablet. 20 MG PO DAILY (Reported) copies to: Mikel Kinney MD, Fred H PA-C Aug 23, 2016 11:13
== END 2016-08-20 12:15 | disposition home or self-care (01) ==
LOC: SAS 14:07 → OSC 21:22 → SAS 08-20 12:15
PROVIDERS: ATTEND General Practice
DX: K80.64 Calculus of gallbladder and bile duct with chronic cholecystitis without obstruction (principal); F41.9 Anxiety disorder, unspecified
CPT/HCPCS: 36415; 43262; 47563; 74300; 74328; 80053; 83690; 85025; 85027; J0330; J0690; J1100; J1610; J2250; J2270; J2405; J2543; J2765; J3010; J7120; Q9967